=== PATIENT | male | born 1960 | race Caucasian/White ===

== ENCOUNTER 2016-06-19 07:25 | Emergency (ER) | payer SELFPAY ==
--- NOTE | 2016-06-19 08:32 | ED CLINICAL REPORT ---
Clinical Report - Physicians/Mid Levels [facility] [address] [place] [address] 06/19/2016 7:29 Patient: REN LOPEZ *This is a preliminary document and is subject to change Time Seen: 0755; initial patient contact. Arrived- By private vehicle. Historian- patient. HISTORY OF PRESENT ILLNESS Chief Complaint: NECK PAIN. Modifying factors- worsened by rotation of the head to the right or left or neck flexion. Not relieved by anything. It is described as being mild and in the area of the left trapezius, left side of the cervical spine and cervical spine and radiating to the left elbow. The quality is noted to be aching. Onset- about 5 months ago and it is still present (persistent). It was gradual in onset and has been intermittent. No bladder dysfunction, bowel dysfunction, sensory loss or motor loss. Patient denies an injury but injury to the head. Similar symptoms previously: None. Recent medical care: Not recently seen/assessed. REVIEW OF SYSTEMS No headache, difficulty with urination, numbness or weakness. He has had neck pain. PAST HISTORY HTN. Surgeries: No history of previous surgery. SOCIAL HISTORY Current every day smoker. History of drug use: marijuana. No alcohol use. ADDITIONAL NOTES The nursing notes have been reviewed. PHYSICAL EXAM Vital Signs: 06/19/2016 07:36 BP: 136/93. HR: 96. RR: 20. O2 saturation: 97%. Temp: 98.9 F. Pain level now: 8/10. Have been reviewed. Hypertensive. Heart rate normal. Respiratory rate normal. Temperature normal. Oxygen saturation normal. Appearance: Alert. No acute distress. HEENT: Normal external inspection. Neck: Mild pain in the entire posterior neck upon turning the head to the right, turning the head to the left and flexing the neck. Mild muscle spasm of the left posterior neck. No vertebral tenderness. Mild soft tissue tenderness in the left mid and lower neck area. Neuro: Oriented X 3. Mood/affect normal. No motor deficit. No sensory deficit. Reflexes normal. LABS, X-RAYS, AND EKG C-Spine X-rays: Moderate straightening of the cervical spine. No fracture or subluxation. Views: 3 view C-spine series. Technique: good. The X-rays were independently viewed by me and interpreted contemporaneously by me. Prior films were not available for comparison. Interpretation time: 08:20. CLINICAL IMPRESSION Acute cervical strain. INSTRUCTIONS No lifting greater than 10 lbs until released. Your Current Medications: CONTINUE TAKING THE FOLLOWING MEDICATIONS: LIsinopril*. Tamsulosin HCl Oral. Prescription Medications: Baclofen 20 mg: take 1 orally every 8 hours. Dispense thirty (30). No refills. Diclofenac 50 mg tablets: take 1 tablet orally every 8 hours as needed for pain or stiffness. Dispense thirty (30). No refill. Follow-up: Blood pressure screening was not performed during this visit because the patient has an active diagnosis of hypertension. Chepe Lawrence Dr.
--- NOTE | 2016-06-19 08:32 | ED ORDER SUMMARY ---
..... Patient: REN LOPEZ OrderSheet [facility] VisitID: [id number] [address] [place] [address] 55y, M Registration Date/Time: 06/19/2016 ORDER SHEET Weight: 79.3 kg (stated) Allergies: Sulfa GENERAL ORDERS: Cervical Spine 2 or 3V Urgent (07:59 06/19/2016 Jennyfer De Paz) (Ack 8:02 Jorge) MEDICATION ORDERS: Toradol IM 60 mg (NOW) (07:59 06/19/2016 Jennyfer De Paz) (Ack 8:03 SStone R.N.) (8:16 SSambou R.N.) IV FLUIDS: ORDER SHEET NOTES: This document has not been locked and should not be saved in the medical record.
--- NOTE | 2016-06-19 08:32 | ED CLINICAL REPORT ---
Clinical Report - Physicians/Mid Levels [facility] [address] [place] [address] 06/19/2016 7:29 Patient: REN LOPEZ *This is a preliminary document and is subject to change Time Seen: 0755; initial patient contact. Arrived- By private vehicle. Historian- patient. HISTORY OF PRESENT ILLNESS Chief Complaint: NECK PAIN. Modifying factors- worsened by rotation of the head to the right or left or neck flexion. Not relieved by anything. It is described as being mild and in the area of the left trapezius, left side of the cervical spine and cervical spine and radiating to the left elbow. The quality is noted to be aching. Onset- about 5 months ago and it is still present (persistent). It was gradual in onset and has been intermittent. No bladder dysfunction, bowel dysfunction, sensory loss or motor loss. Patient denies an injury but injury to the head. Similar symptoms previously: None. Recent medical care: Not recently seen/assessed. REVIEW OF SYSTEMS No headache, difficulty with urination, numbness or weakness. He has had neck pain. PAST HISTORY HTN. Surgeries: No history of previous surgery. SOCIAL HISTORY Current every day smoker. History of drug use: marijuana. No alcohol use. ADDITIONAL NOTES The nursing notes have been reviewed. PHYSICAL EXAM Vital Signs: 06/19/2016 07:36 BP: 136/93. HR: 96. RR: 20. O2 saturation: 97%. Temp: 98.9 F. Pain level now: 8/10. Have been reviewed. Hypertensive. Heart rate normal. Respiratory rate normal. Temperature normal. Oxygen saturation normal. Appearance: Alert. No acute distress. HEENT: Normal external inspection. Neck: Mild pain in the entire posterior neck upon turning the head to the right, turning the head to the left and flexing the neck. Mild muscle spasm of the left posterior neck. No vertebral tenderness. Mild soft tissue tenderness in the left mid and lower neck area. Neuro: Oriented X 3. Mood/affect normal. No motor deficit. No sensory deficit. Reflexes normal. LABS, X-RAYS, AND EKG C-Spine X-rays: Moderate straightening of the cervical spine. No fracture or subluxation. Views: 3 view C-spine series. Technique: good. The X-rays were independently viewed by me and interpreted contemporaneously by me. Prior films were not available for comparison. Interpretation time: 08:20. CLINICAL IMPRESSION Acute cervical strain. INSTRUCTIONS No lifting greater than 10 lbs until released. Your Current Medications: CONTINUE TAKING THE FOLLOWING MEDICATIONS: LIsinopril*. Tamsulosin HCl Oral. Prescription Medications: Baclofen 20 mg: take 1 orally every 8 hours. Dispense thirty (30). No refills. Diclofenac 50 mg tablets: take 1 tablet orally every 8 hours as needed for pain or stiffness. Dispense thirty (30). No refill. Follow-up: Blood pressure screening was not performed during this visit because the patient has an active diagnosis of hypertension. Chepe Lawrence Dr.
--- NOTE | 2016-06-19 08:32 | ED ORDER SUMMARY ---
..... Patient: REN LOPEZ OrderSheet [facility] VisitID: [id number] [address] [place] [address] 55y, M Registration Date/Time: 06/19/2016 ORDER SHEET Weight: 79.3 kg (stated) Allergies: Sulfa GENERAL ORDERS: Cervical Spine 2 or 3V Urgent (07:59 06/19/2016 Jennyfer De Paz) (Ack 8:02 Jorge) MEDICATION ORDERS: Toradol IM 60 mg (NOW) (07:59 06/19/2016 Jennyfer De Paz) (Ack 8:03 SStone R.N.) (8:16 SSambou R.N.) IV FLUIDS: ORDER SHEET NOTES: This document has not been locked and should not be saved in the medical record.
--- NOTE | 2016-06-19 08:32 | ED NURSING NOTES ---
Clinical Report - Nurses [facility] [place] [address] 06/19/2016 7:29 Patient: REN LOPEZ TRIAGE Triage time 07:36. Acuity: LEVEL 4. Chief Complaint: (Left shoulder, neck, upper back pain). --07:40 Melyssa Barreto R.N. 07:36 06/19/16. BP: 136/93. HR: 96. RR: 20. O2 saturation: 97%. Temp: 98.9 F. Pain level now: 09/18. --07:40 Melyssa Barreto R.N. Weight: 79.3 kg stated. Height/Length: 66 inches Per Patient. BMI: 28.2. --07:38 Melyssa Barreto R.N. Medications Tamsulosin HCl Oral. --07:37 Melyssa Barreto R.N. LIsinopril. --07:37 Melyssa Barreto R.N. Allergies Sulfa. --07:37 Melyssa Barreto R.N. History Arrived by private vehicle. Onset. (5 months). ( No known injury). He has had extremity pain (5 months). ( worsening x 2 weeks). 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 PAST MEDICAL HX: Hypertension. ( Prostate CA). SURGERY HX: No history of previous surgery. SOCIAL HX: Light tobacco smoker. History of occasional drug use: marijuana. No infectious disease exposure. --07:40 Melyssa Barreto R.N. Interventions ID band on patient. --07:40 Melyssa Barreto R.N. PHYSICAL ASSESSMENT GENERAL / NEURO / PSYCH: Alert. Oriented X 4. Appears in no acute distress. RESPIRATORY: Respirations not labored. CVS: Normal heart rate and rhythm. GI / : Abdomen soft and nontender. Bowel sounds within normal limits. EXTREMITIES: Limited ROM present in the left shoulder. BACK: Normal inspection of the neck and back. Limited ROM of the neck and back (due to pain). --07:41 Melyssa Barreto R.N. NURSING PROGRESS NOTES Patient gowned. Reassurance given. Call light placed in reach. Bed placed in lowest position. Patient waiting for evaluation. --07:41 Melyssa Barreto R.N. ( Ice pack provided.). --07:46 Melyssa Barreto R.N. 08:16 06/19/2016 Toradol (Ketorolac Tromethamine) IM 60 mg given. Given in the left deltoid. Allergies verified and confirmed 5 rights. --08:16 Sheriff Yen R.N. DISPOSITION / DISCHARGE Departure time: 841. Condition at departure: unchanged. No learning barriers present. Discharge instructions provided and reviewed with the patient. Reviewed warnings. Reviewed medication(s). Treatments reviewed. Patient verbalized understanding. Written instructions provided in Azerbaijani. The patient was discharged by the physician. He was discharged home. He left the Emergency Department ambulatory and via private vehicle. Patient driving. --08:42 Melyssa Barreto R.N. 08:40 06/19/16. BP: 136/93. HR: 96. RR: 20. O2 saturation: 97%. Pain level now: 09/18. --08:42 Melyssa Barreto R.N. Locked/Released at 06/25/2016 7:36 by Melyssa Barreto R.N.
--- NOTE | 2016-06-19 08:32 | ED NURSING NOTES ---
Clinical Report - Nurses [facility] [place] [address] 06/19/2016 7:29 Patient: REN LOPEZ TRIAGE Triage time 07:36. Acuity: LEVEL 4. Chief Complaint: (Left shoulder, neck, upper back pain). --07:40 Melyssa Barreto R.N. 07:36 06/19/16. BP: 136/93. HR: 96. RR: 20. O2 saturation: 97%. Temp: 98.9 F. Pain level now: 09/18. --07:40 Melyssa Barreto R.N. Weight: 79.3 kg stated. Height/Length: 66 inches Per Patient. BMI: 28.2. --07:38 Melyssa Barreto R.N. Medications Tamsulosin HCl Oral. --07:37 Melyssa Barreto R.N. LIsinopril. --07:37 Melyssa Barreto R.N. Allergies Sulfa. --07:37 Melyssa Barreto R.N. History Arrived by private vehicle. Onset. (5 months). ( No known injury). He has had extremity pain (5 months). ( worsening x 2 weeks). 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 PAST MEDICAL HX: Hypertension. ( Prostate CA). SURGERY HX: No history of previous surgery. SOCIAL HX: Light tobacco smoker. History of occasional drug use: marijuana. No infectious disease exposure. --07:40 Melyssa Barreto R.N. Interventions ID band on patient. --07:40 Melyssa Barreto R.N. PHYSICAL ASSESSMENT GENERAL / NEURO / PSYCH: Alert. Oriented X 4. Appears in no acute distress. RESPIRATORY: Respirations not labored. CVS: Normal heart rate and rhythm. GI / : Abdomen soft and nontender. Bowel sounds within normal limits. EXTREMITIES: Limited ROM present in the left shoulder. BACK: Normal inspection of the neck and back. Limited ROM of the neck and back (due to pain). --07:41 Melyssa Barreto R.N. NURSING PROGRESS NOTES Patient gowned. Reassurance given. Call light placed in reach. Bed placed in lowest position. Patient waiting for evaluation. --07:41 Melyssa Barreto R.N. ( Ice pack provided.). --07:46 Melyssa Barreto R.N. 08:16 06/19/2016 Toradol (Ketorolac Tromethamine) IM 60 mg given. Given in the left deltoid. Allergies verified and confirmed 5 rights. --08:16 Sheriff Yen R.N. DISPOSITION / DISCHARGE Departure time: 841. Condition at departure: unchanged. No learning barriers present. Discharge instructions provided and reviewed with the patient. Reviewed warnings. Reviewed medication(s). Treatments reviewed. Patient verbalized understanding. Written instructions provided in Polish. The patient was discharged by the physician. He was discharged home. He left the Emergency Department ambulatory and via private vehicle. Patient driving. --08:42 Melyssa Barreto R.N. 08:40 06/19/16. BP: 136/93. HR: 96. RR: 20. O2 saturation: 97%. Pain level now: 09/18. --08:42 Melyssa Barreto R.N. Locked/Released at 06/25/2016 7:36 by Melyssa Barreto R.N.
--- NOTE | 2016-06-19 10:40 | DIAGNOSTIC IMAGING REPORT ---
PROCEDURE: XR CERVICAL SPINE 2 OR 3 VIEW INDICATION: NECK PAIN TECHNIQUE: Three views. COMPARISON: None. FINDINGS: Osseous structures and disc spaces are normal. No evidence of an acute process or fracture. IMPRESSION: 1. Negative cervical spine.
--- NOTE | 2016-06-25 07:36 | ED MAR SUMMARY ---
..... Medication Administration Record [facility] [address] [place] [address] Patient: REN LOPEZ Visit ID: [id number] 55y, M Weight: 79.3 kg Height/Length: 66 in BMI: 28.2 ALLERGIES: Sulfa Given 08:16 06/19/2016 Sheriff Yen R.N. Medication Administered: TORADOL [IM] (KETOROLAC TROMETHAMINE), Dose: 60 mg IM. Medication Ordered: Toradol IM 60 mg (NOW).
--- NOTE | 2016-06-25 07:36 | ED MAR SUMMARY ---
..... Medication Administration Record [facility] [address] [place] [address] Patient: REN LOPEZ Visit ID: [id number] 55y, M Weight: 79.3 kg Height/Length: 66 in BMI: 28.2 ALLERGIES: Sulfa Given 08:16 06/19/2016 Sheriff Yen R.N. Medication Administered: TORADOL [IM] (KETOROLAC TROMETHAMINE), Dose: 60 mg IM. Medication Ordered: Toradol IM 60 mg (NOW).
--- NOTE | 2016-06-25 07:36 | ED MED RECONCILIATION SUMMARY ---
Patient: REN LOPEZ Medication Reconciliation Report [facility] VisitID: [id number] [address] [place] [address] 55y, M Registration Date/Time: 06/19/2016 Weight: 79.3 kg Height/Length: 66 in. BMI: 28.2 ALLERGIES: Sulfa The patient's Home Medications are listed below: CONTINUE TAKING THE FOLLOWING MEDICATIONS: LIsinopril Tamsulosin HCl Oral The source(s) of the original Home Medication information: Not obtained. The following Medications were given to the patient in the Emergency Department: Toradol [IM] IM 60 mg, administered: 06/19/2016 8:16:00 AM The following Medications were prescribed to the patient: Baclofen 20 mg: take 1 orally every 8 hours. Dispense thirty (30). No refills. -- Chepe Lawrence Dr. Diclofenac 50 mg tablets: take 1 tablet orally every 8 hours as needed for pain or stiffness. Dispense thirty (30). No refill. -- Chepe Lawrence Dr.
--- NOTE | 2016-06-25 07:36 | ED DISCHARGE INSTRUCTIONS ---
Patient: REN LOPEZ General Instructions [facility] VisitID: [id number] [place] [address] 55y, M Registration Date/Time: 06/19/2016 Acute cervical strain. INSTRUCTIONS No lifting greater than 10 lbs until released. Your Current Medications: CONTINUE TAKING THE FOLLOWING MEDICATIONS: LIsinopril*. Tamsulosin HCl Oral. Prescription Medications: Baclofen 20 mg: take 1 orally every 8 hours. Dispense thirty (30). No refills. Diclofenac 50 mg tablets: take 1 tablet orally every 8 hours as needed for pain or stiffness. Dispense thirty (30). No refill. Follow-up: Follow up with your doctor in about four days. Call for an appointment. Blood pressure screening was not performed during this visit because the patient has an active diagnosis of hypertension. ADDITIONAL INFORMATION Neck Sprain Or Strain A sudden force that causes turning or bending of the neck (such as in a car accident) can stretch or tear muscles (strain) and ligaments (sprain) and cause neck pain. Sometimes neck pain occurs after a simple awkward movement. In either case, muscle spasm is commonly present and contributes to the pain. Unless you had a forceful physical injury (for example, a car accident or fall), X-rays are usually not ordered for the initial evaluation of neck pain. If pain continues and dose not respond to medical treatment, X-rays and other tests may be performed at a later time. Home care The following guidelines will help you care for your injury at home: You may feel more soreness and spasm the first few days after the injury. Reduce your activity level until symptoms begin to improve. When lying down, use a comfortable pillow that supports the head and keeps the spine in a neutral position. The position of the head should not be tilted forward or backward. Use ice packs (ice in a plastic bag, wrapped in a towel) to treat acute pain. Apply for 20 minutes every 24 hours during the first two days. Then, begin local heat (hot shower, hot bath or heating pad) andmassageto reduce muscle spasm. Some patients feel best alternating hot and cold treatments, or just staying with one method only. Do what feels the best to you and gives the most relief. You may use acetaminophen or ibuprofen to control pain, unless another pain medicine was prescribed.If you have chronic liver or kidney disease or ever had a stomach ulcer or GI bleeding, talk with your doctor before using these medicines. Follow-up care Follow up with your physician or this facility if your symptoms do not show signs of improvement. Physical therapy may be needed. If you had X-rays today, they didnt show any broken bones, breaks, or fractures. Sometimes fractures dont show up on the first X-ray. Bruises and sprains can sometimes hurt as much as a fracture. These injuries can take time to heal completely. If your symptoms dont improve or they get worse, talk with your doctor. You may need a repeat X-ray. When to seek medical care Get prompt medical attention if any of the following occur: Pain becomes worse or spreads into your arms Weakness or numbness in one or both arms You have been given the following additional information: Neck Sprain/Strain No lifting greater than 10 lbs until released. (Electronically signed by Chepe Lawrence Dr. 06/19/2016 8:34)
--- NOTE | 2016-06-25 07:36 | ED MED RECONCILIATION SUMMARY ---
Patient: REN LOPEZ Medication Reconciliation Report [facility] VisitID: [id number] [address] [place] [address] 55y, M Registration Date/Time: 06/19/2016 Weight: 79.3 kg Height/Length: 66 in. BMI: 28.2 ALLERGIES: Sulfa The patient's Home Medications are listed below: CONTINUE TAKING THE FOLLOWING MEDICATIONS: LIsinopril Tamsulosin HCl Oral The source(s) of the original Home Medication information: Not obtained. The following Medications were given to the patient in the Emergency Department: Toradol [IM] IM 60 mg, administered: 06/19/2016 8:16:00 AM The following Medications were prescribed to the patient: Baclofen 20 mg: take 1 orally every 8 hours. Dispense thirty (30). No refills. -- Chepe Lawrence Dr. Diclofenac 50 mg tablets: take 1 tablet orally every 8 hours as needed for pain or stiffness. Dispense thirty (30). No refill. -- Chepe Lawrence Dr.
== END 2016-06-19 08:42 | disposition home or self-care (01) ==
LOC: ED SRH 07:25
DX: S16.1XXA Strain of muscle, fascia and tendon at neck level, initial encounter (principal); X58.XXXA Exposure to other specified factors, initial encounter; Y93.9 Activity, unspecified; Y99.9 Unspecified external cause status; Y92.9 Unspecified place or not applicable; F17.210 Nicotine dependence, cigarettes, uncomplicated; I10 Essential (primary) hypertension